=== PATIENT | female | born 1970 | race American Indian/Alaskan Native ===

== ENCOUNTER 2017-12-27 04:57 | Inpatient (IN) ==
[2017-12-23 17:48] LABS: Appearance,Urine HAZY; Bacteria,Urine 0 /hpf (0); Bilirubin,Urine NEG (NEG); Calcium Oxalate Crystals,Urine MANY /hpf (0); Color,Urine YELLOW; Glucose,Urine (UA) NEGATIVE (NEG); Leukocyte Esterase,Urine NEG /uL (NEG); Mucus,Urine MANY /hpf (0); Protein,Urine 30 mg/dL (NEG); Specific Gravity,Urine 1.026 (1.000-1.035); Urine Blood NEG mg/dL (<0.03); Urine RBC 0 /hpf (0-1); Urine Squamous Epithelial Cell 3 /hpf (0-4); Urine WBC 7 /hpf (0-4); Urobilinogen,Urine NEG (NEG)
[2017-12-23 19:20] LABS: Basophils # (Auto) 0.1 K/mcL (0.0-0.3); Basophils % (Auto) 1.3 % (0.0-2.0); Eosinophils # (Auto) 0.2 K/mcL (0.0-0.7); Eosinophils % (Auto) 3.2 % (0.0-7.0); Granulocytes % (Auto) 56.3 % (38.0-78.0); Lymphocytes # (Auto) 1.8 K/mcL (1.5-4.8); Lymphocytes % (Auto) 30.8 % (15.5-49.0); Mean Cell Volume 84.3 fL (80.0-100.0); Mean Corpuscular HGB Conc 32.1 g/dL (31.0-36.0); Monocytes # (Auto) 0.5 K/mcL (0.1-0.9); Monocytes % (Auto) 8.4 % (1.0-12.0); Platelet Count 250 K/mcL (140-440); RBC 4.89 M/mcL (4.00-5.20); Red Cell Distribution Width 15.1 % (11.5-14.5)
[2017-12-23 19:27] LABS: Blood Urea Nitrogen 9 mg/dl (6-20)
[2017-12-27] MEDS ORDERED: oxyCODONE 10 MG TAB.ER.12H PO SCH ×3 (07:00→14:45)
[2017-12-27] MEDS ORDERED: ACETAMINOPHEN 500 MG TABLET PO SCH (07:00)
[2017-12-27] MEDS ORDERED: PREGABALIN 75 MG CAPSULE PO SCH (07:00)
[2017-12-27] MEDS ORDERED: ceFAZolin 1 GM VIAL IV SCH (07:00)
[2017-12-27] MEDS ORDERED: 0.9 % SODIUM CHLORIDE 9 ML, KETOROLAC 30 MG, ROPIVACAINE HCL/PF 49.5 ML, EPINEPHrine 0.... IJ SCH (07:00)
[2017-12-27] MEDS ORDERED: GLYCOPYRROLATE 0.2 MG/ML VIAL IV ONE (07:45)
[2017-12-27] MEDS ORDERED: LIDOCAINE HCL/PF 100 MG/5 ML SYRINGE IV ONE (07:45)
[2017-12-27] MEDS ORDERED: PROPOFOL 200 MG/20 ML VIAL IV ONE (07:45)
[2017-12-27] MEDS ORDERED: ROPIVACAINE HCL/PF 30 ML VIAL IJ ONE (07:45)
[2017-12-27] MEDS ORDERED: KETAMINE 100 MG/ML ML IV ONE (07:45)
[2017-12-27] MEDS ORDERED: TRANEXAMIC ACID 1,000 MG/10 ML VIAL IV ONE (07:45)
[2017-12-27] MEDS ORDERED: MIDAZOLAM 2 MG/2 ML VIAL IV ONE (07:45)
[2017-12-27] MEDS ORDERED: ONDANSETRON 4 MG/2 ML VIAL IV ONE (07:45)
[2017-12-27] MEDS ORDERED: GENTAMICIN SULFATE 800 MG/20 ML VIAL IR ONE (08:12)
[2017-12-27 08:33] LABS: Appearance,Urine HAZY; Bacteria,Urine 0 /hpf (0); Bilirubin,Urine NEG (NEG); Color,Urine YELLOW; Glucose,Urine (UA) NEGATIVE (NEG); Leukocyte Esterase,Urine 500 /uL (NEG); Mucus,Urine FEW /hpf (0); Protein,Urine 30 mg/dL (NEG); Specific Gravity,Urine 1.019 (1.000-1.035); Urine Blood 0.03 mg/dL (<0.03); Urine RBC 10 /hpf (0-1); Urine Squamous Epithelial Cell 2 /hpf (0-4); Urine Transitional Epi Cells 1 /hpf (0-2); Urine WBC 169 /hpf (0-4); Urobilinogen,Urine NEG (NEG)
[2017-12-27] MEDS ORDERED: METHOCARBAMOL 1,000 MG/10 ML VIAL IV PRN (08:33)
[2017-12-27] MEDS ORDERED: ONDANSETRON 4 MG/2 ML VIAL IV PRN ×2 (08:33→08:55)
[2017-12-27] MEDS ORDERED: MEPERIDINE 25 MG/ML SYRINGE IV PRN (08:33)
[2017-12-27] MEDS ORDERED: IPRATROPIUM/ALBUTEROL 3 ML AMPUL.NEB NEB PRN (08:33)
[2017-12-27] MEDS ORDERED: fentaNYL 100 MCG/2 ML VIAL IV PRN (08:33)
[2017-12-27] MEDS ORDERED: LACTATED RINGERS 1,000 ML IV SCH (08:45)
[2017-12-27] MEDS ORDERED: BENZOCAINE/MENTHOL 1 LOZENGE PO PRN (08:55)
[2017-12-27] MEDS ORDERED: BISACODYL 10 MG SUPP.RECT PR PRN (08:55)
[2017-12-27] MEDS ORDERED: MAGNESIUM HYDROXIDE 30 ML ORAL.SUSP PO PRN (08:55)
[2017-12-27] MEDS ORDERED: POLYETHYLENE GLYCOL 3350 17 GM PACKET PO PRN (08:55)
[2017-12-27] MEDS ORDERED: ACETAMINOPHEN 325 MG TABLET PO PRN (08:55)
[2017-12-27] MEDS ORDERED: TRANEXAMIC ACID 1,000 MG/10 ML VIAL IV SCH (08:55)
[2017-12-27] MEDS ORDERED: FLEETS ADULT ENEMA PR PRN (08:55)
--- NOTE | 2017-12-27 08:55 | Brief Operative Note ---
Date of procedure: 12/27/17 Pre-op diagnosis: right knee djd Post-op diagnosis: same Procedure: right total knee Grafts/Implants: Yes Anesthesia: GETA Complications: none Surgeon: Willi Almaraz Software Quality Assurance Analyst: Jason Ritter Estimated blood loss (cc): 50 Tourniquet Time (Minutes): 37 Specimens Removed/Pathology: none sent Condition: stable Disposition: PACU
[2017-12-27] MEDS ORDERED: ZOLPIDEM TARTRATE 5 MG PO PRN (08:58)
[2017-12-27] MEDS ORDERED: traMADol 50 MG TABLET PO PRN (08:58)
[2017-12-27] MEDS ORDERED: ONDANSETRON ODT 4 MG TABLET SL PRN (09:13)
--- NOTE | 2017-12-27 09:49 | Operative Note ---
DATE OF OPERATION: 12/27/2017 PREOPERATIVE DIAGNOSIS: Right knee degenerative arthritis. POSTOPERATIVE DIAGNOSIS: Right knee degenerative arthritis. PROCEDURE: Right total knee arthroplasty using a standard approach with a size 4 femur, size 4 tibial baseplate, 11 mm poly and a 33 mm patellar button.. SURGEON: Willi Almaraz M.D. PEANUT ROASTER: Jason Ritter PA-C. EMERGENCY RESPONSE OFFICER: Berna Hannah M.D. COMPLICATIONS: None.TOURNIQUET TIME: 37 minutes. BLOOD LOSS: 50 mL. DESCRIPTION OF PROCEDURE: The patient was brought to the operating room and put to sleep with general LMA anesthesia. Once asleep, the patient had the right knee sterilely prepped and draped in the usual sterile fashion. Timeout was performed. We confirmed the operative site. A midline incision, a midvastus approach was performed. We dislocated the kneecap and severe synovitis and arthritis with a valgus malaligned knee. We placed an intramedullary guide suri into the femur, made our femoral cut at 9 mm, and then on the tibia we also made our cut at approximately 8 mm below the least involved area. We irrigated thoroughly and then removed these bony fragments. We then preserved the PCL, removed the remnants of the meniscus and spurs were removed. We irrigated thoroughly and then placed the components. We trialed the components after punching them into place, setting rotation. Once this was done, we then found the 11 to be the most appropriate for extension and flexion. The patella was then measured at 22 mm. This was cut to 14 mm and then resurfaced with a 33 mm patellar button. We irrigated thoroughly. All these were cemented into place. The bone was very soft. We kept the knee at 45 degrees and a small lateral release was performed to help the patella track. After this was done, we then closed the midvastus approach after a synovectomy with #1 Stratafix x2 sutures. Skin was closed with #1 Stratafix, 2-0 Vicryl and wilson. The patient tolerated this well without complication. Tourniquet time was 37 minutes. RBH:jayson Job ID: [id number] Doc ID: [id number] Willi Almaraz MD
--- NOTE | 2017-12-27 09:51 | XRay Report ---
CLINICAL INFORMATION: Post-Op Total Knee COMPARISON: None. FINDINGS: Total knee prostheses is anatomically aligned. No osseous abnormality. Periarticular gas and soft tissue swelling seen as expected IMPRESSION: Negative Interpreted and Authenticated by: Jordan Craig 12/27/17
[2017-12-27] MEDS: 0.45 % SODIUM CHLORIDE 1,000 ML IV SCH (10:24)
[2017-12-27] MEDS: KETOROLAC 15 MG/ML VIAL IV SCH ×3 (12:37→23:07)
[2017-12-27] MEDS: DOCUSATE SODIUM 100 MG CAPSULE PO SCH ×2 (12:38→20:49)
[2017-12-27] MEDS: ASPIRIN 325 MG ENTERIC COATED TABLET PO SCH ×2 (12:38→20:48)
[2017-12-27] MEDS: HYDROmorphone 2 MG/ML VIAL IV PRN ×3 (13:32→20:55)
[2017-12-27] MEDS: 0.9 % SODIUM CHLORIDE 10 ML SYRINGE IV SCH ×2 (14:15→23:08)
[2017-12-27] MEDS ORDERED: LORazepam 2 MG/ML VIAL IV ONE (14:36)
[2017-12-27] MEDS: ceFAZolin 1 GM VIAL IV SCH ×2 (15:27→23:08)
[2017-12-27] MEDS ORDERED: DIAZEPAM 5 MG TABLET PO ONE (17:00)
[2017-12-27] MEDS: HYDROcodone/APAP 10/325MG TABLET PO PRN ×2 (19:00→23:07)
[2017-12-27] MEDS: SENNOSIDES 1 TABLET PO SCH (20:48)
[2017-12-27] MEDS: oxyCODONE 10 MG TAB.ER.12H PO SCH (20:49)
[2017-12-27] MEDS ORDERED: TEMAZEPAM 15 MG CAPSULE PO PRN (21:00)
[2017-12-28] MEDS: 0.45 % SODIUM CHLORIDE 1,000 ML IV SCH (00:31)
[2017-12-28] MEDS: HYDROcodone/APAP 10/325MG TABLET PO PRN ×5 (03:06→21:34)
[2017-12-28] MEDS: HYDROmorphone 2 MG/ML VIAL IV PRN ×6 (03:12→19:10)
[2017-12-28] MEDS: KETOROLAC 15 MG/ML VIAL IV SCH ×4 (05:20→23:24)
[2017-12-28] MEDS: 0.9 % SODIUM CHLORIDE 10 ML SYRINGE IV SCH ×3 (05:21→21:36)
--- NOTE | 2017-12-28 07:34 | Orthopedic Progress Note ---
Subjective Patient information: Note initiated : 12/28/17 at 7:33 am Service Date, if different from initiated Date: [] Patient: Thuy Fu 47 y/o F admitted on 12/27/17 for Right Total Knee Arthroplasty. Chief Complaint: [Pt is stable this morning on post operative day 1 without any significant concerns or complaints other than having a hard time controlling pain. Patients vital signs have remained stable. Patients dressing is dry and is grossly intact from a neurovascular and motor standpoint. Patients 10 point ROS is otherwise negative. ] Objective Vital signs: Vital Signs Temp Pulse Resp BP Pulse Ox 12/28/17 06:48 98.6 F 90 18 149/91 93 12/28/17 05:00 92 12/28/17 03:51 97.9 F 84 14 119/82 96 12/28/17 01:27 94 12/28/17 01:25 85 L 12/27/17 23:45 98.1 F 101 H 14 125/82 92 12/27/17 21:00 92 12/27/17 20:00 97.9 F 109 H 14 142/88 96 12/27/17 17:00 96 12/27/17 15:35 97.6 F 18 138/81 98 12/27/17 13:00 98 12/27/17 10:15 99 12/27/17 09:55 97.3 F 86 18 119/68 98 12/27/17 09:41 98.1 F 76 15 125/67 100 12/27/17 09:32 98.5 F 80 14 128/75 100 12/27/17 09:26 98.2 F 83 20 113/65 100 12/27/17 09:21 98.4 F 103 H 23 H 123/65 99 Intake and Output 12/27/17 12/28/17 12/28/17 21:59 05:59 13:59 Intake Total 240 / 240 1550 / 1550 Output Total 1949 1500 / 1500 Balance -1710 / -1710 50 / 50 Intake: IV 900 / 900 Sodium Chloride 0.45% 1,000 ml 900 / 900 @ 100 mls/hr IV .Q10H [facility] Rx#: [id number] Oral 240 / 240 650 / 650 Output: Void Amount 1949 1500 / 1500 Other: Meal Dinner Percent of Meal Consumed 75% Feeding Ability Independent Urine Appearance Clear Clear Urine Color Dark Yellow Dark Yellow Urine Odor Normal Normal Weight 332 lb Intake & Output: Intake & Output 12/27/17 12/28/17 12/28/17 21:59 05:59 13:59 Intake Total 240 / 240 1550 / 1550 Output Total 1949 1500 / 1500 Balance -1710 / -1710 50 / 50 Weight 332 lb Intake: IV 900 / 900 Sodium Chloride 0.45% 1,000 ml 900 / 900 @ 100 mls/hr IV .Q10H [facility] Rx#: [id number] Oral 240 / 240 650 / 650 Output: Void Amount 1949 1500 / 1500 Other: Meal Dinner Percent of Meal Consumed 75% Feeding Ability Independent Urine Appearance Clear Clear Urine Color Dark Yellow Dark Yellow Urine Odor Normal Normal Incision: Yes healing Incision clean and dry: Yes Dressing: Yes clean Neurological exam IM: Yes motor sensory intact, Yes neurovascular intact Extremities exam IM: Yes Foot pink and warm, Yes neurovascular intact - Labs CBC & BMP: 12/28/17 04:59 12/23/17 15:03 Labs: Orthopedic Labs 12/23/17 15:03 PT 13.8 INR 1.1 12/28/17 12/23/17 04:59 15:03 Hgb 13.2 Hct 31.1 L 41.2 Assessment and Plan (1) Hx of total knee arthroplasty The patient has been educated regarding dressing care, Physical Therapy recommendations, home exercises, restrictions, and follow up appointments. The patient has had all necessary DME prescribed. The patient has remained relatively stable during their hospital course. Leave Dermabond patch intact until followup Status: Acute
--- NOTE | 2017-12-28 07:40 | Discharge Summary ---
Ortho Discharge - TKA - Patient Instructions Diet: Regular Diet Activity: activity as tolerated, weight bearing as tolerated Total Knee Protocol: For Total Knee: Start ROM TRACEY with stationary bike or rocking chair. Work on gaining full extension of knee. Posterior dislocation precautions provided. Hip abductor strengthening and gait training instructions provided. Apply Cryocuff as instructed. Dressing Care: May shower in 2 days, Aquacel Ag - leave on for 5 days - Problem Maintenance (1) Hx of total knee arthroplasty Status: Acute - Follow Up Plan Follow Up Appointments: Jason Ritter PA-C [Physician Cook Helper] - 01/11/18 10:40 am Disposition: Home, Self-Care Prognosis: Good Rehab Potential: Good I certify that the patient requires SNF services: No Overall status at discharge: patient is progressing back to baseline - Orders For Discharge Prescriptions: Aspirin [Ecotrin] 325 mg PO BID #60 tab.ec Diazepam [Valium] 10 mg PO Q6H PRN #60 tab PRN Reason: Anxiety Docusate Sodium [Colace] 100 mg PO BID #60 cap HYDROcodone/APAP 10/325MG [[place] 10-325Mg] 1 - 2 tab PO Q4HP PRN #75 tab PRN Reason: Pain Level 3-6 oxyCODONE [Oxycontin] 20 mg PO BID #28 tab.er.[id number]
[2017-12-28] MEDS: DOCUSATE SODIUM 100 MG CAPSULE PO SCH ×2 (08:51→21:33)
[2017-12-28] MEDS: oxyCODONE 10 MG TAB.ER.12H PO SCH (08:51)
[2017-12-28] MEDS: ASPIRIN 325 MG ENTERIC COATED TABLET PO SCH ×2 (08:52→21:34)
[2017-12-28] MEDS: DIAZEPAM 5 MG TABLET PO PRN ×2 (11:07→21:33)
[2017-12-28] MEDS: SENNOSIDES 1 TABLET PO SCH (21:33)
[2017-12-29] MEDS: HYDROcodone/APAP 10/325MG TABLET PO PRN (01:33)
[2017-12-29] MEDS: KETOROLAC 15 MG/ML VIAL IV SCH (05:10)
[2017-12-29] MEDS: 0.9 % SODIUM CHLORIDE 10 ML SYRINGE IV SCH (05:11)
[2017-12-29] MEDS: DIAZEPAM 5 MG TABLET PO PRN (05:21)
[2017-12-29] MEDS: HYDROmorphone 2 MG/ML VIAL IV PRN (06:19)
[2017-12-29] MEDS: DOCUSATE SODIUM 100 MG CAPSULE PO SCH (09:10)
[2017-12-29] MEDS: ASPIRIN 325 MG ENTERIC COATED TABLET PO SCH (09:10)
== END 2017-12-29 10:45 | disposition home or self-care (01) | DRG 470 ==
LOC: MEDSUR 04:57
PROVIDERS: ADMIT Orthopaedic Surgery; ATTEND Orthopaedic Surgery
CPT/HCPCS: 62322; 97162; C1713; C1776; J0690; J1170; J1580; J1885; J2001; J2060; J2250; J2405; J2795; J7120